=== PATIENT | male | born 1980 | race Caucasian/White ===

== ENCOUNTER 2023-03-31 09:49 | Observation (INO) | payer OTHER, SELFPAY ==
[2023-03-31] VITALS (9 sets, daily range): BP systolic 155–175; BP diastolic 95–122; PULSE 120–147; RESP 14–24; TEMP 36.4–36.7; O2SAT 97–100; BMI 26.6
--- NOTE | ~2023-03-31 | CT_ITS ---
EXAMINATION: CTA chest PE abdomen pel DATE: 03/31/2023 15:58 GIFT SHOP CLERK INDICATION: Heart racing. Elevated d-dimer. TECHNIQUE: Computed tomographic angiography (CTA) of the chest, abdomen, and pelvis was performed wit hout and with 100 mL Omnipaque-350 intravenous contrast. The dose-length product was 1210.73 mGy-cm. Maximum intensity projection 3D-reconstructions of the aorta and other arteries were constructed by grecia technologist on a separate workstation. Automated exposure control and iterative reconstruction te berto were employed. COMPARISON: None. FINDINGS: CHEST CTA: Study is technically adequate. There are small filling defects in segmental and subsegmental pulmonar y arteries on the left, consistent with pulmonary embolism, small thrombus burden. No evidence for ao rtic aneurysm or dissection. Cardiomegaly. No significant pleural or pericardial effusion. No thoraci c lymphadenopathy. There is a 4 mm fissural nodule on the right. There is a 3 mm fissural nodule on t he right. Dependent atelectasis. No endobronchial lesions. No focal airspace consolidation. No pneumo thorax. ABDOMEN AND PELVIS CTA: The spleen, pancreas, adrenal glands and kidneys are unremarkable. There is hepatic steatosis. Gallbl adder is present. Mild bladder wall thickening which may be due to underdistention. Consider cystitis in the appropriate clinical setting. No abnormal pelvic masses or fluid collections. No lymphadenopathy. No acute osseous abnormality. No evidence for aortic aneurysm. IMPRESSION: 1. Small filling defects bilateral segmental and subsegmental pulmonary arteries, consistent with pul monary embolism, small thrombus burden. 2: Small fissural nodules on the right measuring 4 mm or less, likely benign. Consider follow-up low dose CT chest in 12 months. 3: Fatty infiltration of the liver. Reviewed, dictated and finalized at location A. SHOP CLERK IMPRESSION: 1. Small filling defects bilateral segmental and subsegmental pulmonary arterie s, consistent with pulmonary embolism, small thrombus burden. 2: Small fissural nodules on the right measuring 4 mm or less, likely benign. C onsider follow-up low dose CT chest in 12 months. 3: Fatty infiltration of the liver.
--- NOTE | ~2023-03-31 | US_ITS ---
EXAMINATION:US venous doppler LE BI INDICATION:Pulmonary embolism TECHNIQUE: Multiple grayscale, color flow and Doppler images of the right and left lower extremity de ep venous systems were obtained and reviewed. COMPARISON:No prior studies for comparison. FINDINGS: The common femoral, superficial femoral and popliteal veins demonstrate normal respiratory variation, augmentation and compressibility. Color flow is also seen within the posterior tibial, pe roneal, greater saphenous and profunda veins. IMPRESSION: 1: No lower extremity deep venous thrombosis. Reviewed, dictated and finalized at location B. ISTICAL METHODS TEACHER
--- NOTE | ~2023-03-31 | XR_ITS ---
EXAMINATION: XR chest 2V DATE: 03/31/2023 13:33 INDICATION: Left sided chest pain and cough TECHNIQUE: PA and lateral views of the chest were obtained. COMPARISON: None FINDINGS: The lungs are clear with no focal airspace opacities, pulmonary edema, pleural effusion or pneumothor ax. The cardiomediastinal silhouette is normal. Visualized bones and soft tissues are unremarkable. IMPRESSION: 1. No acute cardiopulmonary disease. Reviewed, dictated and finalized at location A. H STOCK SORTER
--- NOTE | 2023-03-31 12:43 | ECG_ITS ---
Measurements Intervals [place] Rate: 133 P: 47 LA: 140 QRS: 43 QRSD: 85 T: 37 QT: 290 QTc: 433 Interpretive Statements SINUS TACHYCARDIA ABNORMAL RHYTHM ECG NO PREVIOUS ECG AVAILABLE FOR COMPARISON Electronically Signed On 04-01-2023 13:03:28 BOAT OFFICER by Keo Napier M.D.
--- NOTE | 2023-03-31 13:25 | ED.BACK ---
HPI - Back Pain/Injury General Chief Complaint: Back Pain/Injury Stated Complaint: lower back pain Time Seen by Provider: 03/31/23 12:41 Source: patient and RN notes reviewed Mode of arrival: ambulatory Limitations: no limitations History of Present Illness HPI Narrative: This is a 43 year old male who presents for evaluation of left flank pain. He states he developed left flank pain 1 week ago. HE states this pain has been constant but it worsened today . This pain seems worse with coughing. He reports 1 month ago he develop fever, nausea and body aches. He also states he had productive cough. He was evaluated at an urgent care and he was diagnosed with bronchitis. He was prescribed antibiotics and steroids. He reports his fever resolved but he still has mild intermittent cough . He also reports left upper chest discomfort when coughing last week . He denies nausea, vomiting, diarrhea, shortness of breath. He denies any abdominal pain or urinary s ymptoms. He has noticed today he has rapid heart rate with walking. Related Data Allergies Allergy/AdvReac Type Severity Reaction Status Date / Time No Known Allergies Allergy Mild Verified 03/31/23 12:35 Review of Systems Constitutional: Constitutional: Denies weakness Cardiovascular: Cardiovascular: Denies syncope, Reports rapid heart rate, Denies irregular heart rhythm, Denies leg edema and Denies dyspnea Respiratory: Respiratory: Denies chest congestion, Reports cough, Denies hemoptysis, Denies excessive phlegm production and Denies dyspnea Gastrointestinal: Gastrointestinal: Denies abdominal pain, Denies hematochezia, Denies diarrhea and Denies vomiting Genitourinary: Genitourinary: Denies hematuria, Denies dysuria, Denies penile discharge and Denies testicular pain Musculoskeletal: Musculoskeletal: Reports back pain, Denies joint swelling, Denies loss of height and Denies muscle weakness Neurologic: Denies syncope, Denies focal weakness and Denies weakness PMFSH Past Medical History Medical History (Updated 03/31/23 @ 19:44 by Emilie Donato MD) Patient denies medical problems Surgical History Surgical History (Updated 03/31/23 @ 13:27 by Emilie Donato MD) No pertinent past surgical history Social History Social History (Updated 03/31/23 @ 13:27 by Emilie Donato MD) Smoking status: Never smoker Alcohol intake: current Alcohol use details: 2-3 beers daily Exam Const: General: no acute distress and alert Nutritional Appearance: well nourished Orientation/consciousness: patient oriented x3 Limitations: no limitations HENMT: Head: normal to inspection Eyes: EOM: EOMs intact bilaterally Neck: Neck: normal visual inspection Chest: Chest palpation & inspection: normal inspection of the chest Resp: Effort & Inspection: normal respiratory effort Auscultation: clear to auscultation bilaterally Cardio: Rate: tachycardic Rhythm: regular rhythm Heart sounds: no murmurs GI: GI Palp: Yes Soft to palpation, No Tenderness to palpation present (GI), No Guarding due to palpation present (GI), No Rigid due to palpation and No Hernia present Auscultation: normal bowel sounds : General: Yes no CVA tenderness Skin: General skin exam: normal color Rashes: no rashes Wounds: no wounds Neuro: General: patient oriented x3, moves all extremities and CN's II-XI intact bilaterally Extrem: General: normal to inspection Psych: Mental Status: mental status grossly normal Affect: normal affect Attitude: cooperative Course Reevaluation(s) Reevaluation #1: I Discussed with patient that he has been found to have bilateral PE. He understands he will be admitted. Hospitalist Terese accepts. patient given dose of lovenox. Date: 03/31/23 Time: 16:23 Vital Signs Vital signs: Vital Signs Temperature 97.6 F 03/31/23 09:59 Pulse Rate 147 H 03/31/23 09:59 Respiratory Rate 20 03/31/23 09:59 Blood Pressure 175/115 H
[2023-03-31] MEDS: SODIUM CHLORIDE 0.9% IV 1,000 ML 999 ML IV CONT ×2 (13:47→15:20)
[2023-03-31] MEDS: HYDROmorphone HCL INJ (*CRX) 1 MG/ML SYR IV PUSH (13:49)
[2023-03-31] MEDS: ONDANSETRON INJ 4 MG/2 ML VIAL IV PUSH (13:49)
[2023-03-31 14:04] LABS: Basophils Percent Auto 0.3 % (0.2-1.2); Eosinophils Percent Auto 0.2 % (0-4.4); Hematocrit 48.8 % (42.0-52.0); Hemoglobin 16.4 g/dL (14.0-18.0); Immature Granulocyte Absolute 0.06 K/mm3 (0.00-0.031); Immature Granulocyte Percent A 0.5 % (0-0.5); Lymphocytes Absolute Auto 1.66 K/mm3 (0.9-3.2); Lymphocytes Percent Auto 13.8 % (18.3-44.2); Mean Corpuscular HGB Conc 33.6 g/dl (32-36); Mean Corpuscular Hemoglobin 31.2 pg (26-34); Mean Corpuscular Volume 92.8 fl (80-100); Mean Platelet Volume 10.2 fl (7.4-10.4); Monocytes Absolute Auto 0.8 K/mm3 (0.1-0.6); Monocytes Percent Auto 6.8 % (2.6-8.5); Neutrophils Absolute Auto 9.4 K/mm3 (1.3-6.7); Neutrophils Percent Auto 78.4 % (45.5-73.1); Platelet Count Result 207 k/mm3 (150-375); Red Blood Count 5.26 M/mm3 (4.6-6.20); Red Cell Distribution Width 12.6 % (11.5-14.5)
[2023-03-31 14:13] LABS: Lipase 48 U/L (23-300)
[2023-03-31 14:14] LABS: Appearance Urine Cloudy (Clear); Bacteria Urine None Seen /hpf; Bilirubin Urine Negative (Negative); Blood Urine Negative (Negative); Color Urine Yellow (Yellow); Glucose Urine UA Negative (Negative); Ketones Urine 2+ mg/dL (Negative); Leukocyte Esterase Ur Negative LEU/UL (Negative); Nitrate Urine Negative (Negative); Non Pathogenic Casts 0-2; Protein Urine Negative (Negative); RBC Urine 0-2 /hpf (0-2); Specific Grav Ur 1.011 (1.001-1.035); Squamous Epithelial Cell Urine None seen /hpf (Few); Urobilinogen Urine 0.2 mg/dL (<2.0); WBC Urine 0-5 /hpf; pH Urine 5.5 (5.0-9.0)
[2023-03-31 14:18] LABS: INR 0.9; Prothrombin Time 12.9 Seconds (11.1-14.7)
[2023-03-31 14:19] LABS: Partial Thromboplastin Time 27.1 SECONDS (22.3-36.8)
[2023-03-31 14:22] LABS: Alanine Aminotransferase 30 U/L (6-50); Albumin Level 4.8 g/dL (3.5-5.1); Alkaline Phosphatase 91 U/L (38-126); Anion Gap 13 mmol/L (8-16); Aspartate Amino Transferase 31 U/L (17-59); Bilirubin,Total 0.7 mg/dL (0.2-1.3); Blood Urea Nitrogen 9 mg/dL (9-20); Calcium 9.7 mg/dL (8.4-10.2); Carbon Dioxide 23 mmol/L (22-30); Chloride 103 mmol/L (98-107); Estimated CRCL calculation 94 ml/min; Estimated Glomerular Filt Rate > 60; Glucose 104 mg/dL (65-110); Potassium 3.7 mmol/L (3.4-5.0); Sodium 139 mmol/L (137-145)
[2023-03-31 14:37] LABS: Add Urine Microscopic? YES
[2023-03-31 14:38] LABS: D Dimer 0.49 ug/mL (<0.48)
[2023-03-31] MEDS: ENOXAPARIN 80 MG/0.8 ML SYRINGE SUB-Q (16:30)
--- NOTE | 2023-03-31 18:34 | PM.IMHP ---
H&P: HPI History of Present Illness Date/Time: 03/31/23 20:00 Chief Complaint: Pain with cough. Narrative: This is a previously healthy 43-year-old male who presented to the emergency department via private vehicle for evaluation of left-sided back pain. He has not been feeling well for upwards of 1 month. Symptoms initially started as fever, body aches, and nausea though he later on developed a productive cough. He was evaluated at an urgent care and was diagnosed with bronchitis. He was prescribed antibiotics and steroids and he felt better but was never back to baseline. He continues to have a cough which is rarely productive. Over the last week he has developed left back/flank pain which has gotten worse each day. He describes severe pleuritic pain, mainly in the left mid to low back, which is worse with cough, deep inspiration, laughing, and movement. He has been feeling anxious but denies shortness of breath. Today he noticed that his heart was beating fast while walking which is unusual for him. He denies syncope, near syncope, exertional chest pain, nausea, vomiting, diarrhea, and lower extremity edema. He was afebrile on arrival to the ED. He has been in a sinus tachycardia with rates into the low 120s. Chest CTA showed bilateral pulmonary embolism with small thrombus burden for which he was given 80 mg enoxaparin subQ. He is being admitted in this setting for further treatment. With further questioning he denies personal and family history of blood clots and malignancy. No recent long distance travel. 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 Weight has been stable. He has not noticed any blood in his stools. Review of Systems Review of Systems: Twelve systems were reviewed and are negative except for as per HPI. [facility] Past Medical History Medical History Patient denies medical problems Surgical History Surgical History No pertinent past surgical history Family History Family History Father Hypertension Diabetes mellitus Mother Hypertension Social History Social History (Updated 03/31/23 @ 22:02 by Terese Montemayor PA-C) Social History: Surrogate medical decision maker: Yisel Gracia, spouse. Code status: Full code. Smoking status: Never smoker Alcohol intake: current Drinks per week: 42 Alcohol use details: 2-3 beers a day. Substance use: never Lack of Transportation: No Lack of Food: Never True Current Housing: I Have Housing Concerned About Future Housing: No Difficulty Paying Gas/Electric Bills: No Difficulty Paying for Meds: No Currently Unemployed: No Education: Associate Degree Difficulty w/ Childcare or Family Care: No Additional living arrangements comments: Lives with spouse and children in [place]. 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 Spiritual care concerns: No Meds Home Medications and Allergies Home Medications Medication Instructions Recorded Confirmed Type No Home Medications 03/31/23 03/31/23 History Allergies Allergy/AdvReac Type Severity Reaction Status Date / Time No Known Allergies Allergy Mild Verified 03/31/23 12:35 Vital Signs Vital Signs - 24 hr 03/31/23 09:59 03/31/23 12:36 03/31/23 12:38 Temperature 97.6 F Pulse Rate 147 H 138 H Respiratory Rate 20 17 Blood Pressure 175/115 H 168/111 H Pulse Oximetry 100 100 100 Oxygen Delivery Room Air 03/31/23 13:42 03/31/23 15:15 03/31/23 15:21 Temperature Pulse Rate 138 H 129 H 123 H Respiratory Rate 24 H 17 15 Blood Pressure 175/122 H 168/109 H 171/108 H Pulse Oximetry 100 100 100 Oxygen Delivery 03/31/23 16:29 03/31/23 18:18 Temperature Pulse Rate 127 H 120 H Respiratory Rate 16 14 Blood Pressure 160/110 H 163/113 H P
[2023-03-31] MEDS: HYDROcodone/acetaminophen (*CRX) 5-325 MG TABLET 1 TAB PO (21:03)
[2023-03-31] MEDS: MORPHINE SULFATE (*CRX) 4 MG/ML INJ IV PUSH (21:03)
--- NOTE | 2023-03-31 21:11 | ADMGEN ---
This patient, Cole Gracia, was admitted to Medical Room 345-. Patient/family oriented to hospital policies and general routines including ID bracelet, bed and alarms, visiting hours, pain management, procedures, bathroom and other care routines, personal items, smoking policy, room service/diet, and visiting hours. Information on how to activate the Rapid Response Team has been discussed. Patient/Family are encouraged to report perceived risks to care and to ask questions if they do not understand what they are told or what they should do.
[2023-04-01] VITALS (9 sets, daily range): BP systolic 139–152; BP diastolic 90–99; PULSE 75–107; RESP 14–20; TEMP 36.7–37.2; O2SAT 98
[2023-04-01] MEDS: MORPHINE SULFATE (*CRX) 4 MG/ML INJ IV PUSH ×2 (05:44→10:03)
[2023-04-01 05:58] LABS: Basophils Absolute Auto 0.1 K/mm3 (0.0-0.1); Basophils Percent Auto 0.5 % (0.2-1.2); Eosinophils Absolute Auto 0.2 K/mm3 (0-0.3); Eosinophils Percent Auto 2.5 % (0-4.4); Hematocrit 44.6 % (42.0-52.0); Hemoglobin 14.7 g/dL (14.0-18.0); Immature Granulocyte Absolute 0.03 K/mm3 (0.00-0.031); Immature Granulocyte Percent A 0.3 % (0-0.5); Lymphocytes Absolute Auto 2.02 K/mm3 (0.9-3.2); Mean Corpuscular Hemoglobin 31.2 pg (26-34); Mean Corpuscular Volume 94.7 fl (80-100); Monocytes Absolute Auto 1.1 K/mm3 (0.1-0.6); Monocytes Percent Auto 11.7 % (2.6-8.5); Neutrophils Absolute Auto 5.8 K/mm3 (1.3-6.7); Platelet Count Result 182 k/mm3 (150-375); Red Blood Count 4.71 M/mm3 (4.6-6.20); White Blood Count 9.2 K/mm3 (4.5-10.0)
[2023-04-01 06:22] LABS: Alanine Aminotransferase 23 U/L (6-50); Alkaline Phosphatase 76 U/L (38-126); Anion Gap 7 mmol/L (8-16); Aspartate Amino Transferase 26 U/L (17-59); Bilirubin,Total 0.6 mg/dL (0.2-1.3); Blood Urea Nitrogen 8 mg/dL (9-20); Carbon Dioxide 25 mmol/L (22-30); Chloride 105 mmol/L (98-107); Estimated CRCL calculation 94 ml/min; Estimated Glomerular Filt Rate > 60; Glucose 106 mg/dL (65-110); Sodium 137 mmol/L (137-145)
[2023-04-01] MEDS: ENOXAPARIN 80 MG/0.8 ML SYRINGE SUB-Q ×2 (10:04→22:12)
[2023-04-01] MEDS: HYDROcodone/acetaminophen (*CRX) 5-325 MG TABLET 1 TAB PO ×3 (12:20→22:12)
--- NOTE | 2023-04-01 12:31 | PM.IMPN ---
Progress Note: A&P Assessment and Plan (1) Bilateral pulmonary embolism: Code(s): I26.99 - Other pulmonary embolism without acute cor pulmonale Status: Acute Assessment and Plan: Chest CTA showed small filling defects bilaterally in the segmental and subsegmental pulmonary arteries consistent with pulmonary embolism with a small thrombus burden. Continue enoxaparin 1 milligram/kilogram b.i.d. pending insurance approval for DOAC US Dopplers negative for DVT (2) Sinus tachycardia: Code(s): R00.0 - Tachycardia, unspecified Status: Acute Assessment and Plan: ECHO ordered (3) Elevated blood pressure reading: Code(s): R03.0 - Elevated blood-pressure reading, without diagnosis of hypertension Status: Acute Assessment and Plan: Blood pressures have been persistently elevated 150s/90s however he is quite anxious continue to monitor Initiate antihypertensives if not resolved with pain control. (4) Pulmonary nodule: Code(s): R91.1 - Solitary pulmonary nodule Status: Acute Assessment and Plan: CT also showed small fissural nodules were noted on the right measuring 4 mm or less which are likely benign. Consider follow-up low-dose chest CT in 12 months, per radiologist. Subjective Date/time seen: 04/01/23 12:31 Interval history: Patient is a 43 YO male admitted for evaluation of left-sided back pain. He has not been feeling well for upwards of 1 month. Symptoms initially started as fever, body aches, and nausea though he later on developed a productive cough, diagnosed with bronchitis. He completed a full course of antibiotics and steroids and he felt better but was never back to baseline. He continues to have a cough which is rarely productive. Over the last week he has developed left back/flank pain which has gotten worse each day. He describes severe pleuritic pain, mainly in the left mid to low back, which is worse with cough, deep inspiration, laughing, and movement. He has been feeling anxious but denies shortness of breath. He denies syncope, near syncope, exertional chest pain, nausea, vomiting, diarrhea, and lower extremity edema. Chest CTA showed bilateral pulmonary embolism with small thrombus burden for which he was given 80 mg enoxaparin subQ. No recent long distance travel. 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 Weight has been stable. He has not noticed any blood in his stools. Patient is reporting pain and discomfort in his back and sides, mainly related to coughing and deep breaths although he is not SOB. Denies chest pain. Dopplers negative for DVT, ECHO ordered. Will conitnue Lovenox 80 mg BID. He is a bit anxious and slept poorly. Will order something to help him sleep tonight PRN. Review of Systems Review of Systems: All systems reviewed & are unremarkable except as noted in HPI and below Exam Narrative: General: Well-developed male, quite anxious, sitting up in bed. at bedside. No acute distress. HEENT: Normocephalic, atraumatic. Wearing corrective lenses. PERRL, EOMI. Sclera anicteric. Oral mucosa moist. Neck: Supple. Respiratory: Lungs are clear to auscultation bilaterally. Cardiovascular: Tachycardic with normal S1-S2. Gastrointestinal: Abdomen is soft, nontender, and nondistended with positive bowel sounds. Skin: Warm and dry. Extremities: No cyanosis, clubbing, or edema. Radial and pedal pulses intact. Neurological: A&O x3. Cranial nerves 2-12 are grossly intact. No gross focal deficits to casual conversation. Psychiatric: Pleasant and cooperative with appropriate mood. Objective Data Vital Signs Vital Signs: Vital Signs - 24 hr 03/31/23 12:36 03/31/23 12:38 03/31/23 13:42 Temperature Pulse Rate 138 H 138 H Respiratory Rate 17 24 H Blood Pressure 168/111 H 175/122 H Pulse Oximetry 100 100 100 Oxygen Delivery Room Air 03/31/23 15:15 03/31/23 15:21 03/31/23 1
--- NOTE | 2023-04-01 22:08 | ECHO_ITS ---
Patient Info Name: Cole Gracia Age: 43 years : 1980 Gender: Male Ht: 66 in Wt: 164 lbs BSA: 1.88 m2 HR: 77 bpm BP: 155 / 95 mmHg Heart Rhythm: Sinus Rhythm Technical Quality: Fair Exam Date: 04/01/2023 12:41 PM Exam Location: Echo Lab Patient Status: Inpatient Admit Date: 03/31/2023 Staff Ordering Physician: Terese Montemayor PA-C Hatchery Laborer: Tanvi aLng RDCS Attending Provider: Yoel Marshall MD Referring Physician: Sim DESOUZA; Exam Type: CA echo doppler color flow Study Info Indications - Bilateral pulmonary embolism Complete two-dimensional, color flow and Doppler transthoracic echocardiogram is performed. Summary 1. Complete two-dimensional, color flow and Doppler transthoracic echocardiogram is performed. 2. Normal left ventricular size and thickness with good contractility of all segments. Ejection fraction is 65%. Normal diastolic function. 3. Normal right ventricular size and function. 4. No pulmonary hypertension, estimated pulmonary arterial systolic pressure is 29 mmHg. 5. No significant valve disease. 6. Normal sinus rhythm. Left Ventricle Left ventricular chamber dimension is normal. Left ventricular systolic function is normal, estimated at Empty. There is no increased left ventricular wall thickness. Left ventricular septal wall motion is normal. The left ventricular diastolic function is normal. Right Ventricle Right ventricular chamber dimension is normal. Right ventricular systolic function is normal. Left Atria Left atrial chamber dimension is normal. Right Atria Right atrial chamber dimension is normal. Aortic Valve The aortic valve is trileaflet. There is no aortic valve sclerosis. There is no aortic valve stenosis. There is no aortic valve regurgitation. Pulmonic Valve The pulmonic valve is normal. There is no pulmonic valve stenosis. There is trace pulmonic regurgitation. Mitral Valve The mitral valve has normal leaflets. There is no mitral valve stenosis. There is no mitral valve regurgitation. Tricuspid Valve The tricuspid valve leaflets are normal. There is no significant tricuspid valve stenosis. There is trace tricuspid valve regurgitation. No pulmonary hypertension, estimated pulmonary arterial systolic pressure is 29 mmHg. Pericardium/Pleural The pericardium appears normal. There is no pericardial effusion. Inferior Vena Cava Normal inferior vena cava with >50% collapse upon inspiration consistent with Empty right atrial pressure, 10 mmHg. Aorta The aortic root size at the sinus of Valsalva is normal. The prox ascending aorta size is normal. Left Ventricular Outflow Tract Name Value Normal LVOT 2D LVOT Diameter 2.0 cm LVOT Doppler LVOT Peak Gradient 4 mmHg LVOT Mean Gradient 1 mmHg LVOT VTI 14 cm LVOT VTI/AV VTI Ratio 0.9 LVOT Stroke Volume 44 ml LVOT CO 4.3 l/min LVOT CI 2.3 l/min/m2 Pulmonic Valve Name
[2023-04-01] MEDS: CYCLOBENZAPRINE HCL 5 MG TABLET PO (22:12)
[2023-04-01] MEDS: TEMAZEPAM (*CRX) 7.5 MG CAPSULE PO (22:12)
[2023-04-02] VITALS (7 sets, daily range): BP systolic 127–129; BP diastolic 82–86; PULSE 73–112; RESP 18; TEMP 36.8–36.9; O2SAT 97–98
[2023-04-02 05:51] LABS: Hematocrit 47.8 % (42.0-52.0); Hemoglobin 15.6 g/dL (14.0-18.0); Mean Corpuscular HGB Conc 32.6 g/dl (32-36); Mean Corpuscular Hemoglobin 31.4 pg (26-34); Mean Corpuscular Volume 96.2 fl (80-100); Mean Platelet Volume 9.7 fl (7.4-10.4); Platelet Count Result 169 k/mm3 (150-375); Red Blood Count 4.97 M/mm3 (4.6-6.20); Red Cell Distribution Width 12.9 % (11.5-14.5); White Blood Count 7.4 K/mm3 (4.5-10.0)
[2023-04-02 06:01] LABS: Anion Gap 9 mmol/L (8-16); Blood Urea Nitrogen 10 mg/dL (9-20); Calcium 9.2 mg/dL (8.4-10.2); Carbon Dioxide 27 mmol/L (22-30); Chloride 102 mmol/L (98-107); Estimated CRCL calculation 84 ml/min; Estimated Glomerular Filt Rate > 60; Glucose 87 mg/dL (65-110); Potassium 3.7 mmol/L (3.4-5.0); Sodium 138 mmol/L (137-145)
[2023-04-02] MEDS: HYDROcodone/acetaminophen (*CRX) 5-325 MG TABLET 1 TAB PO (08:16)
[2023-04-02] MEDS: ENOXAPARIN 80 MG/0.8 ML SYRINGE SUB-Q (08:17)
--- NOTE | 2023-04-02 08:39 | PM.IMPN ---
Progress Note: A&P Assessment and Plan (1) Bilateral pulmonary embolism: Code(s): I26.99 - Other pulmonary embolism without acute cor pulmonale Status: Acute Assessment and Plan: Chest CTA showed small filling defects bilaterally in the segmental and subsegmental pulmonary arteries consistent with pulmonary embolism with a small thrombus burden. Continue enoxaparin 1 milligram/kilogram b.i.d. pending insurance approval for DOAC US Dopplers negative for DVT (2) Sinus tachycardia: Code(s): R00.0 - Tachycardia, unspecified Status: Acute Assessment and Plan: ECHO ordered (3) Elevated blood pressure reading: Code(s): R03.0 - Elevated blood-pressure reading, without diagnosis of hypertension Status: Acute Assessment and Plan: Blood pressures have been persistently elevated 150s/90s however he is quite anxious continue to monitor Initiate antihypertensives if not resolved with pain control. (4) Pulmonary nodule: Code(s): R91.1 - Solitary pulmonary nodule Status: Acute Assessment and Plan: CT also showed small fissural nodules were noted on the right measuring 4 mm or less which are likely benign. Consider follow-up low-dose chest CT in 12 months, per radiologist. Subjective Date/time seen: 04/02/23 08:39 Interval history: Patient is a 43 YO male admitted for evaluation of left-sided back pain. He has not been feeling well for upwards of 1 month. Symptoms initially started as fever, body aches, and nausea though he later on developed a productive cough, diagnosed with bronchitis. He completed a full course of antibiotics and steroids and he felt better but was never back to baseline. He continues to have a cough which is rarely productive. Over the last week he has developed left back/flank pain which has gotten worse each day. He describes severe pleuritic pain, mainly in the left mid to low back, which is worse with cough, deep inspiration, laughing, and movement. He has been feeling anxious but denies shortness of breath. He denies syncope, near syncope, exertional chest pain, nausea, vomiting, diarrhea, and lower extremity edema. Chest CTA showed bilateral pulmonary embolism with small thrombus burden for which he was given 80 mg enoxaparin subQ. No recent long distance travel. 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 Weight has been stable. He has not noticed any blood in his stools. Patient is reporting pain and discomfort in his back and sides, mainly related to coughing and deep breaths although he is not SOB. Denies chest pain. Dopplers negative for DVT, ECHO ordered. Will conitnue Lovenox 80 mg BID. He is a bit anxious and slept poorly. Will order something to help him sleep tonight PRN. Review of Systems Review of Systems: All systems reviewed & are unremarkable except as noted in HPI and below Objective Data Vital Signs Vital Signs: Vital Signs - 24 hr 04/01/23 12:00 04/01/23 13:41 04/01/23 16:00 Temperature 98.9 F Pulse Rate 92 93 80 Respiratory Rate 14 Blood Pressure 139/90 Pulse Oximetry 98 04/01/23 21:20 04/01/23 20:00 04/02/23 00:00 Temperature 98.1 F Pulse Rate 75 89 76 Respiratory Rate 20 Blood Pressure 142/99 H Pulse Oximetry 98 04/02/23 04:00 04/02/23 05:10 Temperature 98.2 F Pulse Rate 73 86 Respiratory Rate 18 Blood Pressure 127/86 Pulse Oximetry 97 Intake/Output Intake/Output: Intake & Output 03/30/23 03/31/23 04/01/23 04/02/23 23:59 23:59 23:59 23:59 Intake Total 1999 1030 200 Balance 1999 1030 200 Meds/Results Medications: Active Medications Generic Name Dose Route Start Last Admin Trade Name Freq PRN Reason Stop Dose Admin Acetaminophen 650 mg 03/31/23 16:37 Acetaminophen 325 Mg Tablet PO Q4H PRN Mild Pain (1-3) or Fever Hydrocodone Bitart/Acetaminophen 1 tab 03/31/23 16:37 04/02/23 08:16 Hydrocodone/Acetamin
--- NOTE | 2023-04-02 10:18 | PM.DS ---
DS: Admitting Diagnosis Discharge Date 04/02 Admitting Diagnosis chest pain DS: Discharge Diagnosis Discharge Diagnosis (1) Bilateral pulmonary embolism: Code(s): I26.99 - Other pulmonary embolism without acute cor pulmonale Status: Acute Assessment and Plan: Chest CTA showed small filling defects bilaterally in the segmental and subsegmental pulmonary arteries consistent with pulmonary embolism with a small thrombus burden. Continue enoxaparin 1 milligram/kilogram b.i.d. pending insurance approval for DOAC US Dopplers negative for DVT (2) Sinus tachycardia: Code(s): R00.0 - Tachycardia, unspecified Status: Acute Assessment and Plan: ECHO ordered (3) Elevated blood pressure reading: Code(s): R03.0 - Elevated blood-pressure reading, without diagnosis of hypertension Status: Acute Assessment and Plan: Blood pressures have been persistently elevated 150s/90s however he is quite anxious continue to monitor Initiate antihypertensives if not resolved with pain control. (4) Pulmonary nodule: Code(s): R91.1 - Solitary pulmonary nodule Status: Acute Assessment and Plan: CT also showed small fissural nodules were noted on the right measuring 4 mm or less which are likely benign. Consider follow-up low-dose chest CT in 12 months, per radiologist. DS: Summary Hospital Course Hospital Course: Patient is a 43 YO male admitted for evaluation of left-sided back pain. He has not been feeling well for upwards of 1 month.? Symptoms initially started as fever, body aches, and nausea though he later on developed a productive cough, diagnosed with bronchitis. He completed a full course of antibiotics and steroids and he felt better but was never back to baseline. He continues to have a cough which is rarely productive. Over the last week he has developed left back/flank pain which has gotten worse each day. He describes severe pleuritic pain, mainly in the left mid to low back, which is worse with cough, deep inspiration, laughing, and movement. He has been feeling anxious but denies shortness of breath. He denies syncope, near syncope, exertional chest pain, nausea, vomiting, diarrhea, and lower extremity edema. Chest CTA showed bilateral pulmonary embolism with small thrombus burden for which he was given 80 mg enoxaparin subQ. No recent long distance travel. 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 Weight has been stable. He has not noticed any blood in his stools. Patient is reporting pain and discomfort in his back and sides, mainly related to coughing and deep breaths although he is not SOB. Denies chest pain. Dopplers negative for DVT, ECHO ordered. Will continue Lovenox 80 mg BID. He is a bit anxious and slept poorly. Will order something to help him sleep tonight PRN. 04/02: Patient is seen resting in bed. He does not appear in distress but does appear anxious. He has persistent right sided chest pain that is sharp. He says that what he was given last night helped him to sleep and helped his pain the most. His exam is benign, vitals are stable, and labs are all WNL. He can be discharged home today with PO eliquis for treatment of PE with medical follow up with his PCP. I discussed risk of bleeding associated with eliquis and s/s to monitor for. I also explained that he is likely to have some persistent chest pain from this clot but it should improve over the next couple of weeks. He reports a yellow production of sputum but has no leukocytosis, fever, chills, or shortness of breath. He recently was treated for bronchitis/CAP from an urgent care. I reviewed with him when to be re-evaluated for a possible pneumonia should he have shortness of breath, worsening chest pain, fever, chills, body aches or increase in sputum production. Status at Discharge Cognitive/behavioral status at discharge: A&Ox4, anxious Time Spent with Patient Time attestation: To
== END 2023-04-02 16:50 | disposition home or self-care (01) ==
LOC: ANHED 13:18 → ANH3MED 19:44 → ANH3MEDSUR 04-03 10:14
PROVIDERS: Nurse Practitioner; Physician Assistant; Admitting Provider Family Medicine; Emergency Provider General Practice; PCP Internal Medicine; Visit Provider Student in an Organized Health Care Education/Training Program
DX: I26.99 Other pulmonary embolism without acute cor pulmonale (principal); R00.0 Tachycardia, unspecified; R03.0 Elevated blood-pressure reading, without diagnosis of hypertension; R91.1 Solitary pulmonary nodule; F10.90 Alcohol use, unspecified, uncomplicated; K76.0 Fatty (change of) liver, not elsewhere classified
CPT/HCPCS: 36415; 71046; 71275; 74177; 80048; 80053; 81001; 83605; 83690; 84443; 85025; 85027; 85380; 85610; 85730; 93005; 93306; 93970; 96361; 96372; 96374; 96375; 96376; 99285; A9270; G0378; J1170; J1650; J2270; J2405; J7030; Q9967

== ENCOUNTER 2024-08-14 18:05 | Emergency (ER) | payer OTHER, SELFPAY ==
--- OUTSIDE RECORDS SUMMARY | 2024-08-14 18:07 | XMS_ITS | Referral Summary ---
Author Organization [facility] [address] [place] [address] Care Team Providers Care Template Layout Worker Name Role Phone Nghia Barnhart MD Primary Care Provider Allergies No known active allergies Medications Eliquis 5 mg tablet Take 1 tablet by mouth twice daily 180 tablet 1 4 Active Additional Information Patient not taking.Reported on 01/06/2024 Active Problems Problem Noted Date Diagnosed Date Annual physical exam 10/15/2023 Assessment & Plan (10/15/2023 3:35 PM CDT): Discussed lifestyle modifications, diet and exercise. Routine blood work ordered/reviewed today. Yearly vision and dental examinations. Multiple subsegmental pulmon jonh emboli without acute cor pulmonale 04/15/2023 Assessment & Plan (10/15/2023 3:28 PM CDT): Recent admission at [facility] Was found to have multiple clots in the lungs Hadd xray and CT done, an Echo Continue eliquis 5 mg bid Still having some discomfort, taking it easy Was admitted 04/01 for a couple of days But feeling better Assessment & Plan (04/15/2023 3:17 PM COMMUNITY ORGANIZATION DIRECTOR): Recent admission at [facility] Was found to have multiple clots in the lungs Hadd xray and CT done, an Echo Continue eliquis 5 mg bid Still having some discomfort, taking it easy Was admitted 04/01 for a couple of days But feeling better Resolved Problems Problem Noted Date Diagnosed Date Resolved Date Preventative health care 04/15/2023 Immunizations Immunization Administration Dates Next Due Influenza, Trivalent, IM (MDV) 07/23/2011 Influenza, Unspecified 07/26/2023(Deferr ed: Patient Refused),04/15/2023(Deferred: Patient Refused) Social History Tobacco Use Types Packs/Day Years Used Date Smoking Tobacco: Never Tobacco Cessation:Counseling Given: Not Answered Alcohol Use Standard Drinks/Week Comments Yes 0 (1 standard drink = 0.6 oz pur e alcohol) PHQ-2 Answer Date Recorded PHQ-2 Total Score (If total score is 3 or more points, staff should administer the PHQ-9) 0 10/15/2023 Personal Safety Answer Date Recorded Getting School Help Needed Not on file 04/15 Sex and Gender Information Value Date Recorded Sex Assigned at Not on file Legal Sex Male 11:21 AM COMMUNITY ORGANIZATION DIRECTOR Gender Identity Not on file Sexual Orientation Not on file Last Filed Vital Signs Vital Sign Reading Time Taken Comments Blood Pressure 122/78 01/06/2024 9:27 AM CDT Pulse 73 01/06/2024 9:27 AM CDT Temperature 36.6 C (97.8 F) 01/06/2024 9:27 AM CDT Respiratory Rate 20 01/06/2024 9:27 AM CDT Oxygen Saturation 100% 01/06/2024 9:27 AM CDT Inhaled Oxygen Concentration - - Weight 63.3 kg (139 lb 9.6 oz) 01/06/2024 9:27 A M CDT Height 167.6 cm (5' 5.98 ) 11/21/2023 1:42 PM CD T Body Mass Index 22.55 11/21/2023 1:42 PM CDT Plan of Treatment Not on file Insurance [employer] Member Subscriber Plan / Payer (Ef fective 2014-Present) Name:Cole Gracia Relation to Subscriber:Self Name:Cole Gracia Payer ID:[id number] ([facility]) Group ID:[id number] Type:CIGArea 1 Security HMO/PPO Address: [address] [place] [id number] [facility] Care Teams Template Layout Worker Relationship Specialty Start Date End Date Nghia Barnhart MD [address] [place] [address] PCP - General Family Medicine 04/15/23
--- OUTSIDE RECORDS SUMMARY | 2024-08-14 18:07 | XMS_ITS | Clinical Summary ---
Author Organization [facility] Address [address] [place] [address] Care Team Providers Care Remote Operations Producer Name Role Phone Unavailable Primary Care Provider Unavailabl e Social History Tobacco Use Types Packs/Day Years Used Date Smoking Tobacco: Never Assessed Sex and Gender Information Value Date Recorded Sex Assigned at Not on file Legal Sex Male 8:20 PM CDT Gender Identity Not on file Sexual Orientation Not on file Plan of Treatment Health Maintenance Due Date Last Done Comments Annual Physical 1983 Hepatitis C 1998 DTaP, Tdap and Td Vaccines ( 1 - Tdap) 1999 Hepatitis B Vaccines (1 of 3 - 19+ 3-dose series) 1999 COVID-19 Vaccine (2023-2 5 season) 2023 HPV Vaccines Aged Out No longer eligi ble based on patient's age to complete this topic Meningococcal B Vaccine Aged Out No l onger eligible based on patient's age to complete this topic Meningococcal Vaccine Aged Out No alethea heriberto eligible based on patient's age to complete this topic Pneumococcal Vaccine: Pediat rics (0 to 5 Years) and At-Risk Patients (6 to 49 Years) Aged Out No longer eligible b ased on patient's age to complete this topic RSV Immunizations Under 20 Months Aged Out No longer eligible based on patient's age to complete this topic
--- OUTSIDE RECORDS SUMMARY | 2024-08-14 18:07 | XMS_ITS | Clinical Summary ---
Author Organization [facility] Address [address] [place] [address] Care Team Providers Care Diesel Powerplant Mechanic Helper Name Role Phone Unavailable Primary Care Provider Unavailabl e Source Comments [facility],non-owned Affiliates and Associated Physician Practices is amultiple site organization consisting of ambulatory clinics and hospital sitesin [place], [place], [place] and [place]. This disclosure is being madepursuant to the Care Everywhere program and may not contain all information available regarding this patient. Last updated 18.[facility] [employer] Allergies No known active allergies Medications * Be aware that medications may not be up to date on this document. Alwaysverify current medications with the patient. No known medications Social History Tobacco Use Types Packs/Day Years Used Date Smoking Tobacco: Never Smokeless Tobacco: Never Alcohol Use Standard Drinks/Week Comments Yes 0 (1 standard drink = 0.6 oz pur e alcohol) Sex and Gender Information Value Date Recorded Sex Assigned at Not on file Legal Sex Male 8:25 AM INDUSTRIAL ENGINEER Gender Identity Not on file Sexual Orientation Not on file Last Filed Vital Signs Vital Sign Reading Time Taken Comments Blood Pressure 124/80 03/23/2019 10:38 AM INDUSTRIAL ENGINEER Pulse 72 03/23/2019 10:38 AM INDUSTRIAL ENGINEER Temperature 37.1 C (98.8 F) 03/23/2019 10:38 AM INDUSTRIAL ENGINEER Respiratory Rate 16 03/23/2019 10:38 AM INDUSTRIAL ENGINEER Oxygen Saturation 97% 03/23/2019 10:38 AM INDUSTRIAL ENGINEER Inhaled Oxygen Concentration - - Weight 70.3 kg (155 lb) 03/23/2019 10:38 AM INDUSTRIAL ENGINEER Height 167.6 cm (5' 6 ) 03/23/2019 10:38 AM INDUSTRIAL ENGINEER Body Mass Index 25.02 03/23/2019 10:38 AM INDUSTRIAL ENGINEER Plan of Treatment Health Maintenance Due Date Last Done Comments LIPID TESTING 1980 HIV SCREENING 1995 HEPATITIS C SCREENING 03/23/1998 DTAP/TDAP/TD VACCINES (1 - Tdap) 1999 HEPATITIS B VACCINE (1 of 3 - 19+ 3-dose series) 1999 COVID-19 VACCINE (1 - 2023-2 5 season) 2023 DEPRESSION SCREENING 04/29/2024 INFLUENZA VACCINE (Season Ended) 2024 ZOSTER VACCINE (1 of 2) 2030 HIB VACCINE Aged Out No longer eligi ble based on patient's age to complete this topic HPV VACCINE Aged Out No longer eligi ble based on patient's age to complete this topic MENINGOCOCCAL (Group B) VACC INE SHARED DECISION-MAKING Aged Out No longer eligibl e based on patient's age to complete this topic MENINGOCOCCAL GROUPS A/C/Y/W VACCINE Aged Out No longer eligible b ased on patient's age to complete this topic PNEUMOCOCCAL VACCINE Aged Out No long er eligible based on patient's age to complete this topic [place] [address] [place] [id number]
--- OUTSIDE RECORDS SUMMARY | 2024-08-14 18:07 | XMS_ITS | Clinical Summary ---
Author Organization [facility] [address] [place] [address] Care Team Providers Care Facilities Mechanical Design Engineer Name Role Phone Nghia Barnhart MD Primary Care Provider [phone] Allergies No known active allergies Medications Eliquis [...] (10/15/2023 3:28 PM CDT): Recent admission at [facility] Was found to have multiple clots in the lungs Hadd xray and CT done, an Echo Continue eliquis 5 mg bid Still having some discomfort, taking it easy Was admitted 04/01 for a couple of days But feeling better Assessment & Plan (04/15/2023 3:17 PM TEACHER CITIZENSHIP): Recent admission at [facility] Was found to have multiple clots in [...] Unspecified 07/26/2023(Deferr ed: Patient Refused),04/15/2023(Deferred: Patient Refused) Medical History Medical History Date Comments History of blood clots Multiple subsegmental pulmon jonh emboli without acute cor pulmonale (HCC) Pulmonary embolism (HCC) Social History Tobacco Use Types Packs/Day Years [...] on file Legal Sex Male 11:21 AM TEACHER CITIZENSHIP Gender Identity Not on file Sexual Orientation Not on file Obstetrics History Last Filed Vital Signs Vital Sign Reading [...] 11/21/2023 1:42 PM CDT Plan of Treatment Health Maintenance Due Date Last Done Comments Hepatitis C Screening 1980 DTaP/Tdap/Td Vaccine (1 - Tdap) 1991 Varicella Vaccines (1 of 2 - 13+ 2-dose series) 1993 Hepatitis B Screening 1998 Covid-19 Vaccine (3 - 2023-2 5 season) 2023 07/21/2020, 06/30/2020 Influenza Vaccine (#1) 2023 07/23/2011 Depression Screening 10/14/2024 10/15/2023, 04/15/2023 Regular Well Visit/Exam 18-64 10/14/2024 10/15/2023 HPV Vaccines Aged Out No longer eligi ble based on patient's age to complete this topic Pneumococcal vaccine <65 Aged Out No longer eligible based on patient's age to complete this topic Insurance [employer] Member Subscriber Plan / Payer (Ef fective 2014-Present) Name:Samia Cole A Relation to Subscriber:Self Name:Samia, Cole A Payer ID:[id number] (NA) Group ID:[id number] Type:CIGNA HMO/PPO Address: [facility] [id number] [place] [phone] [employer] Care Teams Facilities Mechanical Design Engineer Relationship Specialty Start Date End Date Nghia Barnhart MD [address] [address] PCP - General Family Medicine 04/15/23
[2024-08-14 18:15] VITALS: BP 149/94; PULSE 104; RESP 18; TEMP 36.7; O2SAT 100
[2024-08-14 19:19] VITALS: BP 144/97; O2SAT 100
[2024-08-14 19:20] VITALS: O2SAT 100
[2024-08-14 19:31] VITALS: O2SAT 100
--- NOTE | 2024-08-14 19:53 | ED_ITS ---
HPI - General Adult General Chief complaint: Back Pain/Injury Stated complaint: back pain Time Seen by Provider: 08/14/24 19:16 History of Present Illness HPI narrative: 44-year-old male presenting to the emergency department for evaluation for back pain that is worsened on the right. Patient states he did have a pulmonary embolism last year and had been on Eliquis for approximately 3 months. Patient stop the Eliquis approximately 9 months ago. Patient began having worsening back pain a few days ago and states symptoms were similar to his pulmonary embolism so patient did start taking Eliquis approximately 3 days ago. Patient is also taking ibuprofen for pain control. Patient denies any associated chest pain or shortness of breath. Related Data Allergies Allergy/AdvReac Type Severity Reaction Status Date / Time No Known Allergies Allergy Mild Verified 08/14/24 18:07 Review of Systems 2 Review of Systems: All systems reviewed & are unremarkable except as noted in HPI and below PMFSH Past Medical History Medical History Patient denies medical problems Surgical History Surgical History No pertinent past surgical history Family History Family History Father Hypertension Diabetes mellitus Mother Hypertension Social History Social History (Updated 03/31/23 @ 22:02 by Terese Montemayor PA-C) Social History: Surrogate medical decision maker: Yisel Hardyyard, spouse. Code status: Full code. Smoking status: Never smoker Alcohol intake: current Drinks per week: 42 Alcohol use details: 2-3 beers a day. Substance use: never Lack of Transportation: No Lack of Food: Never True Current Housing: I Have Housing Concerned About Future Housing: No Difficulty Paying Gas/Electric Bills: No Difficulty Paying for Meds: No Currently Unemployed: No Education: Associate Degree Difficulty w/ Childcare or Family Care: No Additional living arrangements comments: Lives with spouse and children in [place]. 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 Spiritual care concerns: No Exam 2 Narrative: APPEARANCE: Uncomfortable appearing HEAD: normocephalic, atraumatic. EYES: PERRLA/EOMI, conjunctivae clear. NOSE: Normal no drainage EARS:TMS clear with good light reflex. THROAT: Pharynx clear, no exudate. NECK: Supple. No adenopathy, no masses. RESPIRATORY: Airway patent, respirations nonlabored. Clear to auscultation bilaterally, no rales, rhonchi, wheezing. CARDIOVASCULAR: Regular rate and rhythm without murmurs rubs or gallops. ABDOMINAL: Soft, nontender, nondistended, normal bowel sounds MUSCULOSKELETAL: Moves all extremities. Strength/ROM intact, No edema, No calf tenderness. NEURO: Alert. Cranial nerves II through XII intact. Grossly intact SKIN: Warm, dry. Normal Color Course Vital Signs Vital signs: Vital Signs Temperature 98.0 F 08/14/24 18:15 Pulse Rate 104 H 08/14/24 18:15 Respiratory Rate 18 08/14/24 18:15 Blood Pressure 149/94 H 08/14/24 18:15 Pulse Oximetry 100 08/14/24 18:15 Temperature 98.0 F 08/14/24 18:15 Pulse Rate 104 H 08/14/24 18:15 Respiratory Rate 18 08/14/24 18:15 Blood Pressure 144/97 H 08/14/24 19:19 Pulse Oximetry 100 08/14/24 19:31 Oxygen Delivery Room Air 08/14/24 19:31 Medical Decision Making [facility] Narrative Medical decision making narrative: 44 old male presents emergency department for evaluation for concern for back pain that is secondary to pulmonary embolism. Patient had mild tachycardia with heart rate of 104 patient is afebrile with normal blood pressure and a pulse ox of 100% on room air. Patient has a white blood cell count of 6.6 hemoglobin of 13.8. INR is 1.2 D-dimer was less than 0.27 no acute abnormalities on the CMP. Patient denies any chest pain or shortness of breath. Will be treated for musculoskeletal back pain. Differential Diagnosis Differential Diagnosis: Aortic dissection, pulmonary embolism, musculoskeletal back pain Vital Signs Vital Signs: Vital Signs Temperature 98.0 F 08/14/24 18:15 Pulse Rate 104 H 08/14/24 18:15 Respiratory Rate 18 08/14/24 18:15 Blood Pressure 149/94 H 08/14/24 18:15 Pulse Oximetry 100 08/14/24 18:15 Temperature 98.0 F 08/14/24 18:15 Pulse Rate 104 H 08/14/24 18:15 Respiratory Rate 18 08/14/24 18:15 Blood Pressure 144/97 H 08/14/24 19:19 Pulse Oximetry 100 08/14/24 19:31 Oxygen Delivery Room Air 08/14/24 19:31 Lab Data Lab results reviewed: Yes I reviewed the patient's lab results. 08/14/24 20:21 08/14/24 20:21 Labs: Lab Results 08/14/24 Range/Units 20:21 WBC 6.6 (4.5-10.0) K/mm3 RBC 4.53 L (4.6-6.20) M/mm3 Hgb 13.8 L (14.0-18.0) g/dL Hct 41.7 L (42.0-52.0) % MCV 92.1 (80-100) fl MCH 30.5 (26-34) pg MCHC 33.1 (32-36) g/dl RDW 13.2 (11.5-14.5) % Plt Count 197 (150-375) k/mm3 MPV 10.1 (7.4-10.4) fl Immature Gran % (Auto) 0.3 (0-0.5) % Neut % (Auto) 65.4 (45.5-73.1) % Lymph % (Auto) 21.7 (18.3-44.2) % Baldwin % (Auto) 11.4 H (2.6-8.5) % Eos % (Auto) 0.9 (0-4.4) % Baso % (Auto) 0.3 (0.2-1.2) % Lymph # (Auto) 1.43 (0.9-3.2) K/mm3 Baldwin # (Auto) 0.8 H (0.1-0.6) K/mm3 Eos # (Auto) 0.1 (0-0.3) K/mm3 Baso # (Auto) 0.0 (0.0-0.1) K/mm3 Abs Immat Gran (auto) 0.02 (0.00-0.031) K/mm3 Absolute Neuts (auto) 4.3 (1.3-6.7) K/mm3 Absolute Nucleated RBC 0.000 (0.0-0.012) K/mm3 Nucleated RBC % 0.0 (0.0-0.2) % PT 15.4 H (11.1-14.7) Seconds INR 1.2 APTT 29.7 (22.3-36.8) Seconds D-Dimer < 0.27 (<0.48) ug/mL Sodium 137 (137-145) mmol/L Potassium 4.1 (3.4-5.0) mmol/L Chloride 103 (98-107) mmol/L Carbon Dioxide 24 (22-30) mmol/L Anion Gap 10 (4-12) mmol/L BUN 14 (9-20) mg/dL Creatinine 0.74 (0.7-1.3) mg/dL Estim Creat Clear Calc Not Reportable Estimated GFR > 60 (59 - ) Glucose 87 (65-110) mg/dL Calcium 9.0 (8.4-10.2) mg/dL Total Bilirubin 0.4 (0.2-1.3) mg/dL AST 23 (17-59) U/L ALT 17 (6-50) U/L Alkaline Phosphatase 56 (38-126) U/L Total Protein 7.0 (6.3-8.2) g/dL Albumin 4.4 (3.5-5.1) g/dL Discharge Plan Discharge Clinical Impression: Back pain Patient Disposition: Home Condition: Stable Instructions: Antibiotic Form, Back Pain (ED) Additional Instructions: Ibuprofen for back pain. [place] as needed for additional back pain. Flexeril as needed for muscle spasm. Have close follow-up with your primary care physician. If you have any worsening symptoms then please call or return to the emergency department. Patient Language: Peruvian Prescriptions: New cyclobenzaprine 10 mg tablet 10 mg PO BID PRN (Reason: muscle spasm) Qty: 14 0RF hydrocodone-acetaminophen 5-325 mg tablet 1 tablet PO Q12H PRN (Reason: pain) Qty: 14 0RF No Action Eliquis 5 mg Tablet 10 mg PO Q12HR Qty: 180 0RF Rx Instructions: Take 10 mg tablet PO BID through 04/08. Then take 5 mg tablet PO BID for months. hydrocodone-acetaminophen 5-325 mg tablet 1 tablet PO Q8H PRN (Reason: Pain Rated 4-6) Qty: 10 0RF cyclobenzaprine 5 mg tablet 5 mg PO .TID PRN Qty: 30 0RF Rx Instructions: Take 1 tablet PO TID PRN for back, chest pain hydroxyzine HCl 10 mg tablet 10 mg PO TID PRN (Reason: anxiety) Qty: 20 0RF Follow-up/Referrals: Pierre,Andres Mayberry MD [Non-Staff] -
[2024-08-14] MEDS: HYDROmorphone HCL INJ (*CRX) 2 MG/ML VIAL 1 MG IV PUSH (20:04)
[2024-08-14] MEDS: LACTATED RINGERS 1,000 ML 999 ML IV CONT (20:05)
--- OUTSIDE RECORDS SUMMARY | 2024-08-14 20:12 | XMS_ITS | Clinical Summary ---
Author Organization [facility] Address [address] [place] [address] Care Team Providers Care Rehab Aide Name Role Phone Unavailable Primary Care Provider [...]
--- OUTSIDE RECORDS SUMMARY | 2024-08-14 20:12 | XMS_ITS | Clinical Summary ---
Author Organization [facility] [address] [place] [address] Care Team Providers Care Winding Department Supervisor Name Role Phone Nghia Barnhart MD Primary Care Provider [phone] Allergies No known active allergies Medications Eliquis [...] (10/15/2023 3:28 PM CDT): Recent admission at [facility] Was found to have multiple clots in the lungs Hadd xray and CT done, an Echo Continue eliquis 5 mg bid Still having some discomfort, taking it easy Was admitted 04/01 for a couple of days But feeling better Assessment & Plan (04/15/2023 3:17 PM BUTTON SPINDLER): Recent admission at [facility] Was found to have multiple clots [...] on file Legal Sex Male 11:21 AM BUTTON SPINDLER Gender Identity Not on file Sexual Orientation [...] ID:[id number] (NA) Group ID:[id number] Type:CIGNA HMO/PPO Address: [facility] [id number] [place] [phone] [employer] Care Teams Winding Department Supervisor Relationship Specialty Start Date End Date Nghia Barnhart MD [address] [place] [address] PCP - General Family Medicine 04/15/23
--- OUTSIDE RECORDS SUMMARY | 2024-08-14 20:12 | XMS_ITS | Clinical Summary ---
Author Organization [facility] Address [address] [place] [address] Care Team Providers Care Sales Forecast Analyst Name Role Phone Unavailable Primary Care Provider Unavailabl e Source Comments [facility],non-owned Affiliates and Associated Physician Practices is amultiple site organization consisting of ambulatory clinics and hospital sitesin [place], [place], [place] and [place]. This disclosure is being madepursuant to the Care Everywhere program and may not contain all information available regarding this patient. Last updated 18.[facility] [employer] Allergies No known active allergies Medications * [...] on file Legal Sex Male 8:25 AM EDGE BEADER Gender Identity Not on file Sexual Orientation Not on file Last Filed Vital Signs Vital Sign Reading Time Taken Comments Blood Pressure 124/80 03/23/2019 10:38 AM EDGE BEADER Pulse 72 03/23/2019 10:38 AM EDGE BEADER Temperature 37.1 C (98.8 F) 03/23/2019 10:38 AM EDGE BEADER Respiratory Rate 16 03/23/2019 10:38 AM EDGE BEADER Oxygen Saturation 97% 03/23/2019 10:38 AM EDGE BEADER Inhaled Oxygen Concentration - - Weight 70.3 kg (155 lb) 03/23/2019 10:38 AM EDGE BEADER Height 167.6 cm (5' 6 ) 03/23/2019 10:38 AM EDGE BEADER Body Mass Index 25.02 03/23/2019 10:38 AM EDGE BEADER Plan of Treatment Health Maintenance Due Date [...] patient's age to complete this topic [place] [address] [address]
--- OUTSIDE RECORDS SUMMARY | 2024-08-14 20:12 | XMS_ITS | Referral Summary ---
Author Organization [facility] [address] [place] [address] Care Team Providers Care Garment Folder Name Role Phone Nghia Barnhart MD Primary Care Provider [phone] Allergies No known active allergies Medications Eliquis [...] (10/15/2023 3:28 PM CDT): Recent admission at [facility] Was found to have multiple clots in the lungs Hadd xray and CT done, an Echo Continue eliquis 5 mg bid Still having some discomfort, taking it easy Was admitted 04/01 for a couple of days But feeling better Assessment & Plan (04/15/2023 3:17 PM MINUTE CLERK): Recent admission at [facility] Was found to have multiple clots [...] on file Legal Sex Male 11:21 AM MINUTE CLERK Gender Identity Not on file Sexual Orientation [...] Relation to Subscriber:Self Name:Cole Gracia Payer ID:[id number] ([facility]) Group ID:[id number] Type:[id number] HMO/PPO Address: [address] [place] [id number] [facility] Care Teams Garment Folder Relationship Specialty Start Date End Date Nghia Barnhart MD [address] [place] [address] PCP - General Family Medicine 04/15/23
[2024-08-14 20:26] LABS: Basophils Percent Auto 0.3 % (0.2-1.2); Eosinophils Absolute Auto 0.1 K/mm3 (0-0.3); Eosinophils Percent Auto 0.9 % (0-4.4); Hematocrit 41.7 % (42.0-52.0); Hemoglobin 13.8 g/dL (14.0-18.0); Immature Granulocyte Absolute 0.02 K/mm3 (0.00-0.031); Immature Granulocyte Percent A 0.3 % (0-0.5); Lymphocytes Absolute Auto 1.43 K/mm3 (0.9-3.2); Lymphocytes Percent Auto 21.7 % (18.3-44.2); Mean Corpuscular HGB Conc 33.1 g/dl (32-36); Mean Corpuscular Hemoglobin 30.5 pg (26-34); Mean Corpuscular Volume 92.1 fl (80-100); Mean Platelet Volume 10.1 fl (7.4-10.4); Monocytes Absolute Auto 0.8 K/mm3 (0.1-0.6); Monocytes Percent Auto 11.4 % (2.6-8.5); Neutrophils Absolute Auto 4.3 K/mm3 (1.3-6.7); Neutrophils Percent Auto 65.4 % (45.5-73.1); Platelet Count Result 197 k/mm3 (150-375); Red Blood Count 4.53 M/mm3 (4.6-6.20); Red Cell Distribution Width 13.2 % (11.5-14.5); White Blood Count 6.6 K/mm3 (4.5-10.0)
[2024-08-14 20:35] LABS: Alanine Aminotransferase 17 U/L (6-50); Albumin Level 4.4 g/dL (3.5-5.1); Alkaline Phosphatase 56 U/L (38-126); Anion Gap 10 mmol/L (4-12); Aspartate Amino Transferase 23 U/L (17-59); Bilirubin,Total 0.4 mg/dL (0.2-1.3); Blood Urea Nitrogen 14 mg/dL (9-20); Carbon Dioxide 24 mmol/L (22-30); Chloride 103 mmol/L (98-107); Estimated Glomerular Filt Rate > 60; Glucose 87 mg/dL (65-110); Potassium 4.1 mmol/L (3.4-5.0); Sodium 137 mmol/L (137-145)
[2024-08-14 20:37] LABS: INR 1.2; Prothrombin Time 15.4 Seconds (11.1-14.7)
[2024-08-14 20:38] LABS: Partial Thromboplastin Time 29.7 Seconds (22.3-36.8)
[2024-08-14 20:42] LABS: D Dimer < 0.27 ug/mL (<0.48)
== END 2024-08-14 21:08 | disposition home or self-care (01) ==
PROVIDERS: Emergency Provider Emergency Medicine
DX: M54.9 Dorsalgia, unspecified (principal); Z86.711 Personal history of pulmonary embolism
CPT/HCPCS: 36415; 80053; 85025; 85380; 85610; 85730; 96361; 96374; 99284; J1171; J7120